=== PATIENT | male | born 1950 | race Caucasian/White ===

== ENCOUNTER → 2019-07-24 | Outpatient (CLI) | payer MEDICARE ==
--- NOTE | 2019-07-25 10:56 | RAD ---
Bone Densitometry History: Osteoporosis COMPARISON: Bone densitometry report performed on 07/02/2015 Findings: Bone Densitometry was performed with dual photon absorption of the lumbar spine and proximal femurs. Lumbar Spine: Bone density is 0.955 g/cm2 for L1-L4. T-score is -2.2. Z-score is -1.5. Right femoral neck: Bone density is 0.637 g/cm2. T-score is -2.9. Z-score is -2.1. IMPRESSION: Bone mineral density of the right femoral neck with 39 percent bone density loss compared to peak young fracture fragments. This is compatible with osteoporosis. Progression of osteoporosis since the prior exam is noted where previously the right femoral neck bone mineral density T score of -2.6. Interval follow-up in 12 months should be considered if additional or more aggressive therapy is instituted. World Health Organization definition of osteoporosis and osteopenia for women: normal equals T score at or above -1.0 standard deviations; osteopenia equals T score between -1.0 and -2.5 standard deviations; osteoporosis equals T score at or below -2.5 standard deviations. Electronically signed by: Gordon Frazier MD (07/25/2019 10:54 AM) [facility]
== END | disposition home or self-care (01) ==
LOC: DXRAD 11:22
PROVIDERS: ATTEND Family Medicine
DX: M81.0 Age-related osteoporosis without current pathological fracture (principal)
CPT/HCPCS: 77080

== ENCOUNTER 2020-11-11 12:46 | Inpatient (IN) | payer MEDICARE ==
[~2020-11-11] VITALS: Ht 170.2 cm; Wt 66.0 kg
[2020-11-11] MEDS ORDERED: IV NORMAL SALINE 500ML 500 ML IV ONE (13:15)
--- NOTE | 2020-11-11 13:18 | PHYS DOC ---
Past History Past Medical History: CVA, Seizure Past Surgical History: Other Additional Past Surgical Histo: Brain surgery for abscess in 1967 Alcohol Use: None General Adult EDM: Chief Complaint: MECHANICAL FALL HPI: HPI: 70-year-old male with significant history of CVA, cerebral abscess s/p craniectomy, seizure disorder on Dilantin/gabapentin (last seizure was several years ago), who presents from home for the evaluation of fall and facial contusion in the setting of 2 weeks of intermittent lightheadedness. No LOC. Ground level fall prior to arrival, with scattered mild facial contusions and superficial laceration to left eyebrow. Unknown tetanus status. Fall was unwitnessed, with patient having no current lightheadedness at time of my evaluation. No aggravating or alleviating factors. Review of Systems: Review of Systems: Gen: No fever, chills. Eyes: No blurred vision, diplopia. ENT: No facial pain, epistaxis. CV: No CP, syncope. Resp. No SOB, cough. GI: No abd pain, N/V. : No perineal pain, hematuria. Neuro: No RAUSCH, weakness. Reports lightheadedness. MSK: No myalgia, arthralgia, back pain. Skin: Reports superficial left eyebrow laceration. Remainder of systems reviewed and negative unless otherwise specified. Physical Exam: PE: Gen: NAD. Well nourished. Head: NC/AT. Eyes: No scleral icterus. No conjunctival injection. PERRL. ENT: MMM. Posterior OP clear. No epistaxis or septal hematoma. Mild scattered facial abrasions. Superficial nongaping linear lac 1 cm to left eyebrow region. Neck: Supple. NT. CV: RRR. Peripheral pulses intact. Resp: CTAB. Chest: No anterior chest wall TTP. Symmetric chest rise. Abd: Soft. NT. ND. MSK: No peripheral cyanosis. No edema. Extremities atraumatic x4. Back: No midline spinal TTP or stepoffs. Neuro: A&Ox3. Strength & sensation grossly intact throughout. GCS 15. No dysmetria. No extremity drift. No aphasia or dysarthria. No facial asymmetry. Skin. Warm. Dry. Psych: Appropriate mood & affect. Current Patient Data: Labs: Laboratory Tests Test 11/11/20 13:25 11/11/20 15:30 White Blood Count 9.8 x10^3/uL (4.0-11.0) Red Blood Count 4.11 x10^6/uL (4.30-5.70) L Hemoglobin 14.4 g/dL (13.0-17.5) Hematocrit 42.9 % (39.0-53.0) Mean Corpuscular Volume 104 fL (79-100) H Mean Corpuscular Hemoglobin 35 pg (25-35) Mean Corpuscular Hemoglobin Concent 34 g/dL (31-37) Red Cell Distribution Width 12.3 % (11.5-14.5) Platelet Count 227 x10^3/uL (140-400) Neutrophils (%) (Auto) 82 % (31-73) H Lymphocytes (%) (Auto) 10 % (24-48) L Monocytes (%) (Auto) 7 % (0-9) Eosinophils (%) (Auto) 1 % (0-3) Basophils (%) (Auto) 0 % (0-3) Neutrophils # (Auto) 8.1 x10^3uL (1.8-7.7) H Lymphocytes # (Auto) 1.0 x10^3/uL (1.0-4.8) Monocytes # (Auto) 0.6 x10^3/uL (0.0-1.1) Eosinophils # (Auto) 0.1 x10^3/uL (0.0-0.7) Basophils # (Auto) 0.0 x10^3/uL (0.0-0.2) Sodium Level 140 mmol/L (136-145) Potassium Level 4.0 mmol/L (3.5-5.1) Chloride Level 101 mmol/L (98-107) Carbon Dioxide Level 32 mmol/L (21-32) Anion Gap 7 (6-14) Blood Urea Nitrogen 22 mg/dL (8-26) Creatinine 1.1 mg/dL (0.7-1.3) Estimated GFR (Cockcroft-Gault) 66.0 BUN/Creatinine Ratio 20 (6-20) Glucose Level 124 mg/dL (70-99) H Calcium Level 9.4 mg/dL (8.5-10.1) Magnesium Level 2.1 mg/dL (1.8-2.4) Total Bilirubin 0.2 mg/dL (0.2-1.0) Aspartate Amino Transferase (AST) 25 U/L (15-37) Alanine Aminotransferase (ALT) 29 U/L (16-63) Alkaline Phosphatase 117 U/L (46-116) H Troponin I Quantitative < 0.017 ng/mL (0-0.055) Total Protein 8.1 g/dL (6.4-8.2) Albumin 4.1 g/dL (3.4-5.0) Albumin/Globulin Ratio 1.0 (1.0-1.7) Phenytoin (Dilantin) Level 47.1 mcg/mL (10.0-20.0) *H Phenytoin Last Dose Date 11/11/20 Phenytoin Last Dose Time 1200 Urine Collection Type Unknown Urine Color Yellow Urine Clarity Clear Urine pH 7.5 Urine Specific [place] 1.020 Urine Protein Neg (NEG-TRACE) Urine Glucose (UA) Neg mg/dL (NEG) Urine Ketones (Stick) Neg mg/dL (NEG) Urine Blood Trace (NEG) Urine Nitrite Neg (NEG) Urine Bilirubin Neg (NEG) Urine Urobilinogen Dipstick 0.2 mg/dL (0.2 mg/dL) Urine Leukocyte Esterase Neg (NEG) Urine RBC Occ /HPF (0-2) Urine WBC 0 /HPF (0-4) Urine Bacteria 0 /HPF (0-FEW) Vital Signs: Vital Signs Date Time Temp Pulse Resp B/P (MAP) Pulse Ox O2 Delivery O2 Flow Rate FiO2 11/11/20 13:02 98.2 80 18 155/82 (106) 98 Room Air EKG: EKG: EKG at 1318. Sinus rhythm. Heart rate 74. Normal intervals. No STEMI. Inte rpreted by nd. Radiology/Procedures: Radiology/Procedures: EXAM: 1. CTA HEAD WITH AND WITHOUT CONTRAST. 2. CTA NECK WITH AND WITHOUT CONTRAST. HISTORY: Dizziness, fall, neck injury. TECHNIQUE: Computed tomographic angiography of the head and neck was performed before and after the intravenous administration of iodinated contrast. Three-dimensional reconstructions were also performed. One or more of the following individualized dose reduction techniques were utilized for this examination: 1. Automated exposure control. 2. Adjustment of the mA and/or kV according to patient size. 3. Use of iterative reconstruction technique. COMPARISON: None. FINDINGS: Angiographic findings: The aortic arch has a typical branching pattern. There is no arch vessel stenosis. There are moderate atherosclerotic calcifications along both carotid bulbs and proximal internal carotid arteries without significant stenosis. Both internal carotid arteries are patent without stenosis. The external carotid systems are patent. The vertebral arteries are patent. The basilar artery is patent. Both posterior cerebral arteries are patent. The posterior communicating arteries are visualized. There are moderate atherosclerotic calcifications along both cavernous internal carotid arteries without significant stenosis. The middle cerebral arteries are patent. The anterior cerebral arteries are patent. The anterior communicating artery is visualized. Nonangiographic findings: There is no intracranial hemorrhage. Juarez-white differentiation is preserved. The ventricles are normal in size and position. The paranasal sinuses appear clear. The orbits are unremarkable. The temporal bones are unremarkable. Bone windows reveal no suspicious lesions. The lung api cristin demonstrate no acute abnormality. There is soft tissue swelling along the right frontal scalp. The parotid glands and submandibular glands are unremarkable. The thyroid gland demonstrates no suspicious lesions. There are no laryngeal or pharyngeal masses. There are no pathologically enlarged lymph nodes. IMPRESSION: 1. Moderate atherosclerotic calcifications along both carotid bulbs and proximal internal carotid arteries. No hemodynamically significant cervical arterial stenosis. Next were 2. Moderate atherosclerotic calcifications along both cavernous internal carotid arteries. No significant intracranial stenosis or aneurysm. Heart Score: C/O Chest Pain: N/A Risk Factors: Risk Factors: DM, Current or recent (<one month) smoker, HTN, HLP, family history of CAD, obesity. Risk Scores: Score 0 - 3: 2.5% MACE over next 6 weeks - Discharge Home Score 4 - 6: 20.3% MACE over next 6 weeks - Admit for Clinical Observation Score 7 - 10: 72.7% MACE over next 6 weeks - Early Invasive Strategies Course & Med Decision Making: Course & Med Decision Making Pertinent Labs and Imaging studies reviewed. (See chart for details) In summary, 70-year-old male who presents for the evaluation of intermittent lightheadedness over the last 2 weeks, that resulted in a fall today without L OC. No anticoagulants or antiplatelet use. No gross focal neurological deficit. No inducible nystagmus or meningeal signs. No dysmetria. Elevated phenytoin level 47 though had just taken his noon dose. Does not appear to be symptomatic from this with no ataxia, slurred speech, N/V, lethargy or coma, bradyarrhythmias. Remainder of lab work is largely unremarkable. EKG shows no acute injury pattern; no dysrhythmia. Currently awaiting results of CT angiogram of the head and neck to evaluate for possibility of posterior circulation pathology. However, the patient does not clearly describe any vertiginous symptoms. 1700: Angiogram is negative for acute vasculopathy. Remains hemodynamically stable. Advised admission at the very least for observation further management given his recurrent lightheadedness that finally resulted in a fall today. Repeat phenytoin level pending. Dragon Disclaimer: Mario Alberto Disclaimer: This electronic medical record was generated, in whole or in part, using a voice recognition dictation system. Departure Departure: Impression: Primary Impression: Lightheadedness Additional Impressions: Fall Elevated phenytoin level Facial contusion Disposition: ADMITTED INPT THIS HOSP Admitting Physician: Madeline Hutchinson Condition: STABLE Referrals: LINDA OLMOS MD (PCP) HIREN HANNA DO Nov 11, 2020 13:18
[2020-11-11 13:45] LABS: BASO % 0 % (0-3); EOS # 0.1 x10^3/uL (0.0-0.7); EOS % 1 % (0-3); HEMATOCRIT 42.9 % (39.0-53.0); HEMOGLOBIN 14.4 g/dL (13.0-17.5); LYMPH % 10 % (24-48); MEAN CORPUSCULAR HEMOGLOBIN 35 pg (25-35); MEAN CORPUSCULAR HGB CONC 34 g/dL (31-37); MEAN CORPUSCULAR VOLUME 104 fL (79-100); MONO # 0.6 x10^3/uL (0.0-1.1); MONO % 7 % (0-9); NEUT # 8.1 x10^3uL (1.8-7.7); NEUT % 82 % (31-73); PLATELET COUNT 227 x10^3/uL (140-400); RED BLOOD COUNT 4.11 x10^6/uL (4.30-5.70); RED CELL DISTRIBUTION WIDTH 12.3 % (11.5-14.5); WHITE BLOOD COUNT 9.8 x10^3/uL (4.0-11.0)
[2020-11-11] MEDS ORDERED: IOHEXOL 350 MG/ML 100 ML VIAL. IV ONE (13:45)
[2020-11-11] MEDS ORDERED: DIPH,PERTUSS(ACELL),TET VAC/PF 0.5 ML SYRINGE. VAX IM ONE (13:45)
--- NOTE | 2020-11-11 13:55 | EKG ---
[address] [address] Test Date: 2020-11-11 Test Time: 13:18:13 Pat Name: DONAVON COYLE Department: Room: Gender: M Supervising Chef: BI : 1950 Requested By: HIREN HANNA Order Number: [id number] Reading MD: Measurements Intervals [place] Rate: 74 P: 34 MT: 152 QRS: 9 QRSD: 94 T: 28 QT: 396 QTc: 440 Interpretive Statements SINUS RHYTHM NO SPECIFIC ECG ABNORMALITIES RI6.02 No previous ECG available for comparison
[2020-11-11 13:57] LABS: CALCIUM 9.4 mg/dL (8.5-10.1); CREATININE 1.1 mg/dL (0.7-1.3)
[2020-11-11 14:01] LABS: ALBUMIN 4.1 g/dL (3.4-5.0); MAGNESIUM 2.1 mg/dL (1.8-2.4); TOTAL BILIRUBIN 0.2 mg/dL (0.2-1.0); TOTAL PROTEIN 8.1 g/dL (6.4-8.2)
[2020-11-11 14:54] LABS: PHENY 47.1 mcg/mL (10.0-20.0)
[2020-11-11] MEDS ORDERED: ACETAMINOPHEN 325 MG TABLET PO ONE (15:45)
[2020-11-11 16:12] LABS: BACTERIA,URINE 0 /HPF (0-FEW); BILIRUBIN,URINE NEG (NEG); CLARITY,URINE CLEAR; COLOR,URINE YELLOW; GLUCOSE,URINE NEG (NEG); NITRITE,URINE NEG (NEG); RBC,URINE OCC /HPF (0-2); UROBILINOGEN,URINE 0.2 mg/dL (0.2 mg/dL); WBC,URINE 0 /HPF (0-4)
--- NOTE | 2020-11-11 16:28 | RAD ---
EXAM: CT HEAD WITHOUT CONTRAST. HISTORY: Dizziness. TECHNIQUE: Computed tomography of the head was performed without intravenous contrast. One or more of the following individualized dose reduction techniques were utilized for this examination: 1. Automated exposure control. 2. Adjustment of the mA and/or kV according to patient size. 3. Use of iterative reconstruction technique. COMPARISON: None. FINDINGS: There is no intracranial hemorrhage. There are chronic lacunar infarcts within the left bas al ganglia and left landry radiata. There is mild chronic microangiopathic white matter change elsewh ere. Prominence of the lateral ventricles and hemispheric sulci indicates moderate atrophy. The visualized paranasal sinuses appear clear. The orbits are unremarkable. The temporal bones are un remarkable. The calvarium reveals no suspicious lesions. There are atherosclerotic calcifications of the internal carotid arteries. IMPRESSION: 1. No acute intracranial findings. 2. Chronic left basal ganglia lacunar infarct. Moderate atrophy. Electronically signed by: Romeo Peralta MD (11/11/2020 4:25 PM) [facility]
--- NOTE | 2020-11-11 16:34 | RAD ---
EXAM: 1. CTA HEAD WITH AND WITHOUT CONTRAST. 2. CTA NECK WITH AND WITHOUT CONTRAST. HISTORY: Dizziness, fall, neck injury. TECHNIQUE: Computed tomographic angiography of the head and neck was performed before and after the i ntravenous administration of iodinated contrast. Three-dimensional reconstructions were also performe d. One or more of the following individualized dose reduction techniques were utilized for this exami nation: 1. Automated exposure control. 2. Adjustment of the mA and/or kV according to patient size. 3. Use of iterative reconstruction technique. COMPARISON: None. FINDINGS: Angiographic findings: The aortic arch has a typical branching pattern. There is no arch vessel steno sis. There are moderate atherosclerotic calcifications along both carotid bulbs and proximal internal spann tid arteries without significant stenosis. Both internal carotid arteries are patent without stenosis . The external carotid systems are patent. The vertebral arteries are patent. The basilar artery is patent. Both posterior cerebral arteries are patent. The posterior communicatin g arteries are visualized. There are moderate atherosclerotic calcifications along both cavernous internal carotid arteries with out significant stenosis. The middle cerebral arteries are patent. The anterior cerebral arteries are patent. The anterior communicating artery is visualized. Nonangiographic findings: There is no intracranial hemorrhage. Juarez-white differentiation is preserve d. The ventricles are normal in size and position. The paranasal sinuses appear clear. The orbits are unremarkable. The temporal bones are unremarkable. Bone windows reveal no suspicious lesions. The lung apices demonstrate no acute abnormality. There i s soft tissue swelling along the right frontal scalp. The parotid glands and submandibular glands are unremarkable. The thyroid gland demonstrates no suspi cious lesions. There are no laryngeal or pharyngeal masses. There are no pathologically enlarged lymph nodes. IMPRESSION: 1. Moderate atherosclerotic calcifications along both carotid bulbs and proximal internal carotid art eries. No hemodynamically significant cervical arterial stenosis. Next were 2. Moderate atherosclerotic calcifications along both cavernous internal carotid arteries. No signifi cant intracranial stenosis or aneurysm. PQRS Compliance Statement - Stenosis calculations for CT, MR and conventional angiography are based u kushal measurement of the distal ICA diameter in accordance with the NASCET methodology. Stenosis calcu lations for carotid ultrasound studies are derived from validated velocity criteria which are known t o correlate with the NASCET methodology. Electronically signed by: Romeo Peralta MD (11/11/2020 4:32 PM) [facility]
[2020-11-11] MEDS ORDERED: ONDANSETRON PF 4 MG/2 ML VIAL. IVP PRN (17:30)
[2020-11-11 17:57] LABS: PHENY 42.1 mcg/mL (10.0-20.0)
--- NOTE | 2020-11-11 18:25 | NUR ---
Patient arrived to floor
[2020-11-11 18:37] VITALS: BP 163/76
[2020-11-11] MEDS ORDERED: ASPI325T8 PO (18:39)
[2020-11-11] MEDS ORDERED: ATORVASTATIN CA80 MG PO (18:39)
[2020-11-11] MEDS ORDERED: GABA100C81 PO (18:39)
[2020-11-11] MEDS ORDERED: PHEN50TA3 PO (18:39)
[2020-11-11] MEDS ORDERED: PHEN100C PO (19:48)
--- NOTE | 2020-11-12 04:15 | NUR ---
PT APPROACHED FOR ASSESSMENT IN RM 111. PT SITTING UP AND EATING BOX LUNCH. PT IS AOX2-3. PT IS PLEASANTLY CONFUSED AND IS COOPERATIVE. PT HAS FACIAL BRUISING AND SCABBING AROUND THE EYES. PT DENIES ANY PAIN AT THIS TIME. BED ALARM IS ON. CALL LIGHT IN REACH. WILL CONTINUE TO MONITOR.
[2020-11-12 06:49] LABS: PHENY 42.7 mcg/mL (10.0-20.0)
[2020-11-12 07:00] VITALS: BP 144/62
--- NOTE | 2020-11-12 09:57 | HP ---
ADMIT DATE: 11/11/2020 ATTENDING PHYSICIAN: Dr. Huerta. CHIEF COMPLAINT: Recent fall and dizziness. HISTORY OF PRESENT ILLNESS: The patient is a 70-year-old gentleman, retired patient. He goes to the [facility] for care. He has a longstanding history of stroke and cerebral abscess, previous craniotomy from way back in 1967. He has a seizure disorder, currently taking Dilantin and Neurontin. Last seizure was several years ago. He had dizziness. He had a fall. He was sent here for evaluation of lightheadedness. No aggravating factors affecting this. No COVID exposure. No recent trauma. PAST MEDICAL HISTORY: Significant for brain surgery for abscess in 1967, old stroke, and seizure disorder. CURRENT MEDICATIONS: Reviewed. He was taking Dilantin 1 capsule 3 times a day but he would be taking a bit more, Neurontin 100 mg q.i.d., Lipitor, and aspirin. ALLERGIES: He has no known drug allergies. SOCIAL HISTORY: Nonsmoker, nondrinker. He is retired from working in [place], [place]. FAMILY HISTORY: Noncontributory. REVIEW OF SYSTEMS: Significant for the recent fall. No lightheadedness, fevers, chills, sweats, palpitations, loss of consciousness. All other systems reviewed and turned to be negative. PHYSICAL EXAMINATION: GENERAL: When I saw him, this is a pleasant gentleman. INITIAL VITAL SIGNS: Showed a blood pressure of 122/65, pulse is 88 and regular, temperature 99.0 degrees Fahrenheit, oxygen saturation 93% on room air. HEENT: Head is without trauma. Pupils are reactive. Sclerae nonicteric. Oropharynx is clear. NECK: Supple, no bruits identified. LUNGS: Otherwise clear. CARDIOVASCULAR: Showed regular heart tones. No gallops. ABDOMEN: Soft. EXTREMITIES: Without edema. NEUROLOGIC: Focally intact. Speech is fluent. Home Health Care Provider intact. SKIN: Warm and dry. PERTINENT LABORATORY STUDIES AND IMAGING: CT of the head showed no acute changes. Moderate atrophy. There is some lacunar infarcts. CT angiogram of the head showed no significant arteriosclerotic lesions. Hemoglobin on admission was 14.4 g/dL with a white count of 9800. Chemistry panel, normal BUN, creatinine, and electrolytes. Nonfasting blood sugar 108. Cardiac enzymes were negative and he had a Dilantin level which was measured at 47. Urinalysis was clear. ASSESSMENT: 1. A 70-year-old gentleman with dizziness and recent fall. No acute strokes identified. 2. Idiopathic seizure disorder. 3. Dilantin toxicity due to overmedication. PLAN: 1. Observation status. 2. Diet as tolerated. 3. Obviously Dilantin held. 4. Follow up Dilantin levels in the morning. 5. I would recommend stopping Dilantin altogether and initiating Keppra therapy, all discussed with . LEONILA HUERTA MD DR: BROOKE/christopher JOB#: [id number] / [id number]
--- NOTE | 2020-11-12 12:03 | NUR ---
Pt discharged to , reviewed follow up with Dr Eagle on Tuesday to evaluate dilantin levels. Reviewed dc medications with pt , discussed the need to stop Dilantin until lab values check and doctor restarted. Pt a/ox3, vital signs stable, no complaints of pain.
--- NOTE | 2020-11-12 13:23 | DS ---
DATE OF DISCHARGE: 11/12/2020 FINAL DISCHARGE DIAGNOSES: 1. Dilantin toxicity. 2. Seizure disorder. 3. Recent dizziness and fall. 4. Remote history of stroke. HISTORY AND PHYSICAL: The patient is a pleasant 70-year-old gentleman with known idiopathic seizure disorder. He has been stable on his dose of Dilantin, Neurontin. Inadvertently however, he was putting an extra Dilantin tablet into his weekly pill emergency planner. He had Dilantin toxicity with a level of 47.2. He was admitted for further treatment and evaluation. PHYSICAL EXAMINATION: Please see the dictated note. PERTINENT LABORATORY AND X-RAY STUDIES: Admission hemoglobin was 14.4 g/dL with a white count of 9800. Creatinine is 1.1 mg/dL, nonfasting blood sugar 108. His troponin was negative. Transaminases were normal. Dilantin level is 47.1, repeated the next day was down to 42.1. COURSE IN THE HOSPITAL: The patient was admitted, placed on telemetry. Diet was advanced. Dilantin was held. Followup levels were drawn. He was much better with the next hospital day. He was alert. He wanted to go home. I had a long discussion with the patient and his . He is going to hold off taking the Dilantin for now until the following Tuesday, he is going to call his PCP for recheck Dilantin level at that time. In addition, I referred to him the name of Dr. Stephan Fam, a neurologist, in the [facility]. He is going to try to get him to see Dr. Fam. Whether or not they will continue the Dilantin or switch to a different seizure medication such as Keppra remains to be seen. In any event, he was discharged home with instructions for no Dilantin until the following level drawn on Tuesday. He will continue his Neurontin doses unchanged. Other meds include aspirin 325 daily, Lipitor 80 mg daily and again the Neurontin 400 mg q.i.d. The patient was then discharged from our hospital in stable condition with explicit instructions and followup care. LEONILA HUERTA MD DR: BROOKE/christopher JOB#: [id number] / [id number] LINDA Damon MD
== END 2020-11-12 12:07 | disposition home or self-care (01) | DRG 149 ==
LOC: ER 12:46 → 1 SOUTH 17:25
PROVIDERS: ADMIT Internal Medicine; ATTEND Internal Medicine
DX: R42 Dizziness and giddiness (principal); G40.909 Epilepsy, unspecified, not intractable, without status epilepticus; S01.112A Laceration without foreign body of left eyelid and periocular area, initial encounter; W18.30XA Fall on same level, unspecified, initial encounter; T42.0X5A Adverse effect of hydantoin derivatives, initial encounter; Z79.82 Long term (current) use of aspirin; Z79.899 Other long term (current) drug therapy; Z86.61 Personal history of infections of the central nervous system; Z86.73 Personal history of transient ischemic attack (TIA), and cerebral infarction without residual deficits; Z87.891 Personal history of nicotine dependence; Y93.89 Activity, other specified; Y92.89 Other specified places as the place of occurrence of the external cause; Y99.8 Other external cause status
CPT/HCPCS: 36415; 70450; 70496; 70498; 80053; 80185; 81001; 82947; 83735; 84484; 85025; 90471; 90715; 93005; J7040; Q9967; 99285-25

== ENCOUNTER → 2021-04-16 | Outpatient (CLI) | payer MEDICARE ==
[~2021-04-16] MED LIST: ASPI325T8 PO; ATORVASTATIN CA80 MG PO; GABA100C81 PO; PHEN100C PO; PHEN50TA3 PO
--- NOTE | 2021-04-16 16:58 | RAD ---
EXAM: Pelvis and right hip, 2 views. HISTORY: Pain. COMPARISON: None. FINDINGS: A frontal view of the pelvis and frog-leg view of the right hip are obtained. There is inte rnal fixation of a proximal femoral fracture. There is mild right hip osteoarthritis. There is degene rative change involving the lumbar spine. There is suspected bone demineralization. There are vascula r calcifications. IMPRESSION: 1. Internal fixation of a healed proximal right femoral fracture. 2. Mild right hip osteoarthritis and degenerative change involving the lumbar spine. Electronically signed by: Amanda Berrios MD (04/16/2021 4:56 PM) [id number]
== END ==
LOC: RAD 13:02
PROVIDERS: ATTEND Physician Assistant
DX: M16.11 Unilateral primary osteoarthritis, right hip (principal); M47.816 Spondylosis without myelopathy or radiculopathy, lumbar region; Z98.890 Other specified postprocedural states
CPT/HCPCS: 73501